=== PATIENT | male | born 1995 | race Caucasian/White ===

== ENCOUNTER 2019-05-21 14:30 | Emergency (ER) | payer SELFPAY ==
[2019-05-21 14:32] VITALS: BP 164/105; PULSE 64; RESP 16; TEMP 37; O2SAT 98
--- NOTE | 2019-05-21 15:28 | ED.GENADUL_ITS ---
Discharge Plan Disposition Patient Disposition: HOME Discharge Details Chief Complaint: DentalOral Clinical Impression: Dental abscess, Elevated blood pressure reading, Current smoker Primary Care Provider: Unknown,Unknown ED Provider: lAberto Arce Home Meds and New Rx's Prescriptions: New penicillin V potassium 500 mg tablet 500 mg PO QID Qty: 15 RF: 0 No Action bupropion HCl [Wellbutrin XL] 300 mg Tablet Extended Release 24 Hr 300 mg PO QAM RF: 0 Discharge Instructions Instructions: How to Stop Smoking (ED), Dental Abscess (ED) Additional Instructions: Please take the full course of antibiotic as prescribed. Please take ibuprofen over the counter. Take 600mg by mouth every 6 hours as needed for pain. Please contact your dentist tomorrow to arrange timely follow-up. Please contact your primary care physician to arrange follow-up. Be sure to discuss your elevated blood pressure. Return to the ER for any worsening or new concerning symptoms. Stand Alone Forms: Work Release Discharge Data Discharge Date/Time-TO BE ENTERED AT DEPARTURE: 05/21/19 16:43 Medical Decision Making 23-year-old male here with left lower molar tooth #18 dental infection and abscess. Hurricaine gel was applied. Periapical dental block was performed with lidocaine 2%. Small incision made into fluctuant area of gumline and pus was expressed. Penicillin dosing increased and reviewed with patient. Patient understands importance of timely follow-up with dentist. Patient was also informed of elevated blood pressure. I instructed him to follow-up with his primary care physician. He was encouraged to return for any worsening or new concerning symptoms. HPI General Mode of arrival: ambulatory . Date/Time Provider Initiated Documentation: 05/21/19 15:04 . Limitations to Documentation: no limitations . Information obtained by: patient . HPI Narrative: 23-year-old male here with left lower molar dental pain. Patient notes pain started 4 days ago. He states that he has a chronic cavity in that tooth and he attempted to fill it with a temporary filling material that he purchased at pharmacy. He subsequently developed pain in the tooth and then swelling adjacent to tooth. Pain is moderate to severe. He has associated fever that has been intermittent. He was seen at outside hospital yesterday and started on penicillin. He took a single dose of penicillin yesterday and a single dose of penicillin today. Symptoms have persisted and now swelling worse. Related Data Home Medications Medication Instructions Recorded Confirmed bupropion HCl [Wellbutrin XL] 300 mg PO QAM 05/21/19 05/21/19 penicillin V potassium 500 mg PO QID #15 tab 05/21/19 Previous Rx's Medication Instructions Recorded penicillin V potassium 500 mg PO QID #15 tab 05/21/19 Allergies Allergy/AdvReac Type Severity Reaction Status Date / Time codeine Allergy Hives Unverified 05/21/19 14:41 General Stated Complaint: DentalOral MOHAMUD: 3 Review of Systems Constitutional Reports fever(s) ENT Reports as per HPI, Denies neck pain and Reports other (No difficulty swallowing) Musculoskeletal Denies neck pain PFSH Social History Smoking/Tobacco Use Status: Current every day Tobacco Type: cigarettes Alcohol Intake: current Alcohol Intake frequency: a few times a week Drug use: Occasionally Substance use type: marijuana Additional Social history: unable to assess privately Exam Const General: cooperative, healthy appearing and no acute distress HENMT General nose exam: external nose normal Face and sinus: other (Mild swelling of left mandible) Throat: posterior oropharynx normal and uvula midline Other: Tooth #18 with adjacent gumline swelling and tenderness Neck Neck: nontender Lymphatic: no lymphadenopathy noted Resp Effort & Inspection: normal respiratory effort Auscultation: clear to auscultation bilaterally Cardio Rate: regular rate Rhythm: regular rhythm Heart Sounds: no murmurs Skin Rashes: no rashes Course Vital Signs Temperature 37.0 C 05/21/19 14:32 Pulse 64 05/21/19 14:32 Respiratory Rate 16 05/21/19 14:32 Blood Pressure 164/105 H 05/21/19 14:32 Pulse Oximetry 98 05/21/19 14:32 Temperature 37.0 C 05/21/19 14:32 Temperature Source Temporal Artery Scan 05/21/19 14:32 Pulse 64 05/21/19 14:32 Respiratory Rate 16 05/21/19 14:32 Respiratory Effort Non-Labored 05/21/19 14:39 Blood Pressure 164/105 H 05/21/19 14:32 Blood Pressure Position Sitting 05/21/19 14:32 Pulse Oximetry 98 05/21/19 14:32 Oxygen Delivery Method Room Air 05/21/19 14:32 Oxygen Flow Rate 0 05/21/19 14:32 Pain Level 10 05/21/19 14:42
[2019-05-21] MEDS: Ibuprofen 600 MG TAB PO (15:39)
[2019-05-21] MEDS: Penicillin V POTASSIUM 500 MG TAB PO (15:40)
[2019-05-21] MEDS: Benzocaine 20% Gel 30 GM JAR MM (15:40)
[2019-05-21] MEDS: Lidocaine 2% Multi-Dose 50 ML VIAL (16:00)
== END 2019-05-21 16:43 | disposition home or self-care (01) ==
PROVIDERS: Emergency Provider Student in an Organized Health Care Education/Training Program
DX: R68.84 Jaw pain (principal); K04.7 Periapical abscess without sinus; R03.0 Elevated blood-pressure reading, without diagnosis of hypertension
CPT/HCPCS: 41800

== ENCOUNTER 2023-01-19 18:09 | Emergency (ER) | payer SELFPAY ==
[2023-01-19 18:14] VITALS: PULSE 79; RESP 18; TEMP 36.9; O2SAT 100
--- NOTE | 2023-01-19 18:15 | DI.RAD_ITS ---
Exam(s) XR THUMB RT EXAM: XR THUMB RT CLINICAL HISTORY: fall with injury to base of thumb. TECHNIQUE: 2D digital imaging was performed of the right finger. Three views were obtained. PA/AP, oblique, and lateral views were obtained. COMPARISON: No exams were available for comparison FINDINGS: BONES: No acute fracture is present. No bony destructive lesion is seen. JOINTS: No dislocation present. SOFT TISSUE: Normal. IMPRESSION: No evidence of acute fracture, dislocation, or subluxation. DATA REPOSITORY: RADIATION DOSE DELIVERED:
--- NOTE | 2023-01-19 18:15 | DI.RAD_ITS ---
Exam(s) XR WRIST RT COMPL NAVICULAR EXAM: XR WRIST RT COMPL NAVICULAR CLINICAL HISTORY: fall. TECHNIQUE: 2D digital imaging was performed of the right wrist. Four views were obtained. Scaphoid, PA, lateral and oblique views were obtained. COMPARISON: No exams were available for comparison FINDINGS: BONES: No acute fracture is present. No bony destructive lesion is seen. JOINTS: The carpal bones are normally aligned. SOFT TISSUE: Normal. IMPRESSION: Unremarkable radiographs of the right wrist. DATA REPOSITORY: RADIATION DOSE DELIVERED:
[2023-01-19 18:16] VITALS: BP 138/83
--- NOTE | 2023-01-19 18:56 | ED.GENADUL_ITS ---
Discharge Plan Disposition Patient Disposition: Home Discharge Details Clinical Impression: Sprain of hand, thumb, right Primary Care Provider: Unknown,Unknown ED Provider: Trip Trujillo Home Meds and New Rx's Prescriptions: Continued bupropion HCl [Wellbutrin XL] 300 mg Tablet Extended Release 24 Hr 300 mg PO QAM Patient Comments: not taking penicillin V potassium 500 mg tablet 500 mg PO QID Qty: 15 0RF Patient Comments: not taking Rx Instructions: Patient already has 25 tablets. Provide additional 15 tabs for 10 day course. Discharge Instructions Instructions: Skier's Thumb (ED) Additional Instructions: You may continue to use [id number] pain medication such as Tylenol or Motrin as needed for discomfort. Please use provided wrist brace and keep in place until you follow-up with orthopedics. If you have any new or significant worsening symptoms feel free to return the emergency department for reassessment Referrals: [facility] [Provider Group] (Please call the office tomorrow afternoon for arrangement of follow-up appointment) Medical Decision Making Patient presenting to the emergency department for chief complaint of right thumb injury. Patient states fall down a couple stairs but in attempt to stop himself he injured his right thumb. Patient states other minor injuries but states he is only concerned about his thumb. Physical exam shows significant tenderness to the MCP of the right thumb with decreased range of motion secondary to pain and discomfort but difficult to fully assess tendons. He does have flexion extension intact but again has difficulty performing abduction and abduction movements with thumb. We will perform radiological imaging due to significant pain and mechanism of injury. Radiological imaging shows no acute fracture but due to concern of ligamentous injury will place patient in thumb spica and refer to Ortho for follow-up. After discussion of diagnosis and plan of care patient has no further needs, questions, or concerns and states clear understanding to return to the emergency department for any worsening symptoms. This documentation was generated using [facility] [employer] dictation system, please disregard any oddities of phrase or misspellings. Imaging Data Radiologic Study: Imaging: X-Ray Radiologist's impression: Exam(s) PROCEDURE INFORMATION: Exam: XR Right Wrist Exam date and time: 01/19/2023 6:33 PM Age: 27 years old Clinical indication: Other: Fall with injury to base of thumb TECHNIQUE: Imaging protocol: Radiologic exam of the right wrist. Views: 3 or more views. Total images: 4 COMPARISON: CR XR THUMB RT 01/19/2023 6:32 PM FINDINGS: Bones/joints: Bone mineralization is normal. No acute fracture or dislocation. Joint spaces appear normal. Soft tissues: Soft tissues appear normal. No radiopaque foreign bodies. IMPRESSION: No acute fracture or dislocation. Radiologic Study #2: Imaging: X-Ray Radiologist's impression: Exam(s) PROCEDURE INFORMATION: Exam: XR Right Finger(s) Exam date and time: 01/19/2023 6:32 PM Age: 27 years old Clinical indication: Other: Fall TECHNIQUE: Imaging protocol: Radiologic exam of the right fingers. Views: Minimum 2 views. Total images: 3 COMPARISON: No relevant prior studies available. FINDINGS: Bones/joints: Bone mineralization is normal. No acute fracture or dislocation. Joint spaces appear normal. Soft tissues: Soft tissues appear normal. No radiopaque foreign bodies. IMPRESSION: No acute fracture or dislocation. HPI General Mode of arrival: ambulatory . Date/Time Provider Initiated Documentation: 01/19/23 18:16 . Information obtained by: patient . History of Present Illness 27 year old M presents to the emergency department with the chief complaint of Fall right thumb injury, described as moderate, with intensity rated at 6. Quality is described as aching, and is localized to the right and upper extremity. Patient reports no radiation. Patient started experiencing this day(s) (1) and it has been constant. No relieving factors improve symptom(s), No exacerbating factors reported . Patient notes no other symptoms.. Patient did receive the following treatments prior to arrival, none Related Data Home Medications Medication Instructions Recorded Confirmed bupropion HCl 300 mg 24 hr tablet, 300 mg PO QAM 05/21/19 01/19/23 extended release (Wellbutrin XL) penicillin V potassium 500 mg 500 mg PO QID #15 tabs 05/21/19 01/19/23 tablet Previous Rx's Medication Instructions Recorded penicillin V potassium 500 mg 500 mg PO QID #15 tabs 05/21/19 tablet Allergies Allergy/AdvReac Type Severity Reaction Status Date / Time codeine Allergy Hives Unverified 01/19/23 18:16 General Stated Complaint: Orthopedic MOHAMUD: 4 Review of Systems Constitutional Constitutional: Denies headache(s) and Denies weakness ENT Ears, Nose, Mouth, and Throat: Denies headache(s) Musculoskeletal Musculoskeletal: Reports as per HPI Neurologic Neurologic: Denies headache(s) and Denies weakness PFSH All Active Problems (Updated 01/19/23 @ 19:04 by Trip Trujillo NP) Sprain of hand, thumb, right (Acute) Social History Smoking/Tobacco Use Status: Current every day Tobacco Type: cigarettes Smoking risk assessment performed?: Yes Alcohol Intake: current Alcohol Intake frequency: a few times a week Drug use: Occasionally Substance use type: marijuana Additional Social history: unable to assess privately Exam Const General: cooperative, no acute distress and not ill appearing Orientation: alert, awake and oriented x3 HENMT Mouth: moist mucous membranes Resp Effort & Inspection: normal respiratory effort, able to speak in complete sentences and no respiratory distress Cardio Rate: regular rate Rhythm: regular rhythm Pulses: normal peripheral pulses Skin General skin exam: no rashes or lesions noted Neuro General: patient alert, patient awake, patient oriented x3, moves all extremities and no focal motor deficits Sensory Exam: no sensory deficits noted Extrem General: normal exam except as noted Right upper extremity: hand Details: normal capillary refill, neuromotor exam normal, neurosensory exam normal, tendon exam abnormal Location: function weak and function limited secondary to pain, tenderness Location: of the thumb Location: at the MCP joint, vascular exam Details: radial pulse present and normal capillary refill and normal ROM of fingers; no abrasions, no ecchymosis and no puncture wound Course Vital Signs Vital signs: Vital Signs Temperature 36.9 C 01/19/23 18:14 Pulse 79 01/19/23 18:14 Respiratory Rate 18 01/19/23 18:14 Pulse Oximetry 100 01/19/23 18:14 Temperature 36.9 C 01/19/23 18:14 Temperature Source Temporal Artery Scan 01/19/23 18:14 Pulse 79 01/19/23 18:14 Respiratory Rate 18 01/19/23 18:14 Respiratory Effort Normal, Non-Labored 01/19/23 18:16 Blood Pressure 138/83 01/19/23 18:16 Pulse Oximetry 100 01/19/23 18:14 Oxygen Delivery Method Room Air 01/19/23 18:14 Oxygen Flow Rate 0 01/19/23 18:14 PAWSS Have you Been Recently Intoxicated or Drunk Within the Last 30 days?: No Have you Ever Experienced Previous Episodes of Alcohol Withdrawal?: No Have you ever Experienced Withdrawal Seizures?: No Have you ever Experienced Delirium Tremens(DT)s?: No Have you ever undergone Alcohol Rehabilitation Treatment (i.e, inpt ot outpatient treatment programs)?: No Have you ever Experienced Blackouts?: No Have you ever Combined Alcohol with other Downers within the last 90 days?: No Have you ever Combined Alcohol with any other Substance of Abuse during the last 90 days?: No Positive Blood Alcohol level on Presentation? [PCS.BAL]: No Evidence of Increased Autonomic Activity (i.e. HR>120, tremor, sweating, agitation, nausea)?: No Result: 0
== END 2023-01-19 19:41 | disposition home or self-care (01) ==
PROVIDERS: Emergency Provider Nurse Practitioner Family
DX: S06.899A Other specified intracranial injury with loss of consciousness of unspecified duration, initial encounter (principal); W10.9XXA Fall (on) (from) unspecified stairs and steps, initial encounter; S63.601A Unspecified sprain of right thumb, initial encounter
CPT/HCPCS: 29130; 99284; 73110; 73140; 99283